=== PATIENT | female | born 1995 | race Native Hawaiian/Other Pacific Islander ===

== ENCOUNTER 2019-01-26 06:40 | Emergency (ER) | payer OTHER ==
[~2019-01-26] VITALS: Ht 162.6 cm; Wt 86.2 kg
[2019-01-26 06:45] VITALS: TEMP 97.7
[2019-01-26 07:12] LABS: PLATELET COUNT 247 K/uL (152-353)
[2019-01-26 07:33] LABS: POTASSIUM 3.7 mmol/L (3.6-5.2)
[2019-01-26 09:37] VITALS: BP 122/73
== END 2019-01-26 09:37 | disposition home or self-care (01) ==
LOC: ED 06:40
PROVIDERS: Emergency Medicine Emergency Medical Services
DX: N20.1 Calculus of ureter (principal)
CPT/HCPCS: 36415; 80053; 81000; 81025; 82150; 83690; 85027; 87077; 87086; 87088; 87186; 96365; 96375; 99284; J0696; J1885; J2405; Q9963

== ENCOUNTER 2022-01-17 20:42 | Emergency (ER) | payer OTHER ==
[~2022-01-17] VITALS: Ht 162.6 cm; Wt 99.8 kg
[2022-01-17 22:33] VITALS: BP 110/54; TEMP 98.2
== END 2022-01-17 22:33 | disposition home or self-care (01) ==
LOC: ED 20:42
DX: B08.4 Enteroviral vesicular stomatitis with exanthem (principal)
CPT/HCPCS: 96372; 99283; J1200; J1885